=== PATIENT | female | born 1985 | race Caucasian/White ===

== ENCOUNTER 2016-12-22 20:19 | Inpatient (IN) | payer OTHER ==
[~2016-12-22] VITALS: Ht 177.8 cm; Wt 151.4 kg
--- OUTSIDE RECORDS SUMMARY | 2016-12-22 20:27 | XMS REPORT | Continuity of Care Document ---
Author Author [facility] Address Unknown Phone Unavailable Allergies Medications Problems Date Dx Coded Attending Type Code Diagnosis Diagnosed By 10/26/2015 Andi DRAPER, Frandy Uribe Ot 729.1 10/26/2015 Frandy Escamilla MD Ot 786.2 11/03/2015 WESTON DRAPER, FATIMAH Prescott Ot I49.3 11/03/2015 WESTON DRAPER, FATIMAH Prescott Ot I49.9 07/31/2016 HITESH DRAPER, KATARZYNA Prescott Ot Z36 ENCOUNTER FOR SCREENING OF MOT 08/08/2016 HITESH DRAPER, KATARZYNA Prescott Ot Z36 ENCOUNTER FOR SCREENING OF MOT Procedures Results Encounters ACCT No. Visit Date/Time Discharge Status Pt. Type Provider Facility Loc./Unit Complaint [id number] 09/27/2013 15:47:00 2013 23:59:59 CLS Outpatient Andi DRAPER, Frandy [facility] RAD [id number] 07/24/2016 14:46:00 ACT Outpatient HITESH DRAPER, [facility] RAD ANATOMIC SURVEY [id number] 10/26/2015 08:12:00 ACT Outpatient WESTON DRAPER , [facility] RT
[2016-12-22 21:00] VITALS: BP 136/68
[2016-12-22] MEDS ORDERED: MISOPROSTOL 25 MCG (CYTOTEC) TABLET PV SCH (21:15)
[2016-12-22] MEDS ORDERED: AMPICILLIN INJ 2,000 MG in SODIUM CHLORIDE 100 ML IV SCH (21:15)
[2016-12-22] MEDS ORDERED: SODIUM CHLORIDE FLUSH 3 ML SYR IV PRN (21:15)
[2016-12-22] MEDS ORDERED: CALCIUM CARBONATE CHEWABLE 300 MG (TUMS) TABLET PO PRN (21:15)
[2016-12-22 21:30] VITALS: BP 136/68
[2016-12-22] MEDS ORDERED: LIDOCAINE PF 1% (XYLOCAINE) 2 ML VIAL INJ ONE ×2 (21:34→22:50)
[2016-12-22] MEDS ORDERED: AMPICILLIN 2000 MG VIAL ONE (22:09)
[2016-12-22] MEDS ORDERED: SODIUM CHLORIDE 100 ML ONE (22:09)
[2016-12-22 22:13] VITALS: BP 136/68
[2016-12-22 22:13] LABS: MEAN CORPUSCULAR HGB CONC 33.5 g/dL (31.0-37.0); MEAN PLATELET VOLUME 10.1 FL (6.0-9.5); WHITE BLOOD COUNT 13.92 10^3uL (4.0-11.0)
[2016-12-22 22:16] LABS: MEAN CORPUSCULAR HEMOGLOBIN 26.9 PG (26.0-34.0)
[2016-12-22 23:00] VITALS: BP 112/61
[2016-12-22 23:30] VITALS: BP 114/59
[2016-12-23] VITALS (29 sets, daily range): BP systolic 108–132; BP diastolic 56–78
[2016-12-23] MEDS ORDERED: SODIUM CHLORIDE 100 ML ONE (02:00)
[2016-12-23] MEDS ORDERED: AMPICILLIN 1000 MG ONE (02:00)
[2016-12-23] MEDS: AMPICILLIN INJ 1,000 MG in SODIUM CHLORIDE 50 ML IV SCH ×6 (02:10→22:19)
--- NOTE | 2016-12-23 08:27 | History and Physical (E) ---
History & Physical (OB) Subjective: CC: Induction 31 year old at 40 3/7 WGA by LMP confirmed with 7 week U/S presents for elective induction. She was not having any contractions upon presentation, having good FM, no LOF and no VB. has been complicated by maternal obesity, genital warts, but no lesions currently, and GBS+. PNC: [facility] Hx: none PMHx: none PSHx: to [place]. Employed at [employer]. No tob/EtOH/ILD. Allergies: Coded Allergies: No Known Drug Allergies (Unverified , 12/22/16) Objective: Vital Signs Date Time Temp Pulse Resp B/P Pulse Ox O2 Delivery O2 Flow Rate FiO2 12/23/16 06:50 12/23/16 05:00 97.9 81 16 12/22/16 22:13 Room air Laboratory Results Past 24 Hrs 12/22/16 22:00: Hematocrit 38.50, Hemoglobin 12.9, Mean Corpuscular Hemoglobin 26.9, Mean Corpuscular Hemoglobin Concent 33.5, Mean Corpuscular Volume 80, Mean Platelet Volume 10.1, Platelet Count 226, Red Blood Count 4.79, Red Cell Distribution Width 14.2, White Blood Count 13.92 General: Alert and oriented, NAD Chest: CTA Abdomen: Gravid Cardiovasular: RRR, No murmur Extremities: No edema FHT's: 125, moderately reactive, +accels. Cat I. Cx: 2/75/-3 Amonate: q2.5min Screenings: Blood type: A Positive, Rubella Immune, RPR non-reactive, HBV Negative, HIV Negative , GBS Positive. Problems/Plans: (1) 40 weeks gestation of Assessment & Plan: 3 doses of cytotec placed overnight, contractions starting, but no cervical change yet. AROM performed with clear fluid returned. Will give it an hour, and if no change, will start pitocin. Epidural when desired. (2) GBS (group B Streptococcus carrier), +RV culture, currently Assessment & Plan: Ampicillin started on admission, 3 doses received so far. Additional Copies to: End of Report . KATARZYNA PROCTOR MD December 23, 2016 08:17
[2016-12-23] MEDS ORDERED: ROPIVACAINE 1% 10 MG/ML (NAROPIN) 20 ML AMPUL ONE ×3 (09:57→18:49)
[2016-12-23] MEDS ORDERED: OXYTOCIN INJ 20 UNIT in NS 1000ml 1,000 ML IV PRN (12:15)
--- NOTE | 2016-12-23 12:27 | Progress Note (E) ---
Progress Note 12:24 Epidural in, pt resting comfortably. FHT 115s, moderate reactivity, no accels, but did have accel with head stim. Cat I. Cvx 3/80/-2. [place] q 5min. Will start pitocin for augmentation. KATARZYNA PROCTOR MD December 23, 2016 12:26
[2016-12-23 13:05] LABS: BILIRUBIN,URINE Negative (Negative); CLARITY,URINE Clear; COLOR,URINE Yellow; GLUCOSE, URINE (UA) Negative (Negative); LEUKOCYTE ESTERASE ,URINE Negative (Negative); UROBILINOGEN,URINE 0.2 mg/dL (0.2-1.0)
--- NOTE | 2016-12-23 16:50 | Progress Note (E) ---
Progress Note Pit at 13mu. Ctx q2-3min. FHT 130, mod reactive, no decels or accels. Cat I. Cvx /-2. Continue current management. KATARZYNA PROCTOR MD December 23, 2016 16:50
[2016-12-23] MEDS ORDERED: ONDANSETRON 2 MG/ML (Z0FRAN) 2 ML VIAL IV PRN (19:55)
[2016-12-24] VITALS (14 sets, daily range): BP systolic 84–126; BP diastolic 56–75
[2016-12-24] MEDS ORDERED: SODIUM CHLORIDE IV SCH (02:15)
[2016-12-24] MEDS ORDERED: CEFAZOLIN IV SCH (02:15)
[2016-12-24] MEDS ORDERED: POT BICARB/SOD BICARB/CIT AC (ALKA-SELTZER GOLD) 1 TABLET.EFF PO SCH (02:15)
[2016-12-24] MEDS ORDERED: METOCLOPRAMIDE 10 MG/2 ML (REGLAN) VIAL IV SCH (02:15)
[2016-12-24] MEDS ORDERED: ceFAZolin 1000 MG (ANCEF) VIAL ONE (02:16)
--- NOTE | 2016-12-24 02:18 | History and Physical (E) ---
OB History & Physical Update Patient has pushed for over 2 hours, and made no progress past +1 station. Consent was obtained for vacuum delivery. Position was confirmed, Piña in place. Kiwi vacuum was placed and brought to 22mmHg. 3 pulls were made with 2 pop-offs and no advancement of station, and then the procedure abandoned. Advised for failure to descend. Patient advised of risks and benefits and elected to proceed. FHT dropped to 90s during vacuum procedure but recovered immediately after it was removed. FHT 120s now, minimal reactivity, Cat II. KATARZYNA PROCTOR MD December 24, 2016 02:18
[2016-12-24] MEDS ORDERED: SODIUM CHLORIDE 50 ML IV ONE (02:19)
[2016-12-24] MEDS ORDERED: OXYTOCIN INJ 20 UNIT in NS 1000ml 1,000 ML IV SCH (02:53)
[2016-12-24] MEDS ORDERED: ROPIVACAINE 1% 10 MG/ML (NAROPIN) 20 ML AMPUL ONE (02:54)
[2016-12-24] MEDS ORDERED: morphine PF 0.5 MG/ML (DURAMORPH) 10 ML VIAL IV ONE (02:54)
[2016-12-24] MEDS ORDERED: LANOLIN OINTMENT 28 GM TUBE TOP PRN (02:55)
[2016-12-24] MEDS: IBUPROFEN 600 MG (MOTRIN) TAB PO SCH ×4 (02:55→20:53)
[2016-12-24] MEDS ORDERED: OXYTOCIN 10 UNIT/ML (PITOCIN) 1 ML VIAL ONE (02:56)
[2016-12-24] MEDS ORDERED: ONDANSETRON 2 MG/ML (Z0FRAN) 2 ML VIAL ONE (02:59)
[2016-12-24] MEDS ORDERED: METHYLERGONOVINE 0.2 MG/ML (METHERGINE) AMP ONE (03:54)
[2016-12-24] MEDS ORDERED: METHYLERGONOVINE 0.2 MG/ML (METHERGINE) AMP IM ONE (04:00)
[2016-12-24] MEDS ORDERED: ONDANSETRON 2 MG/ML (Z0FRAN) 2 ML VIAL IV ONE (07:30)
[2016-12-24] MEDS ORDERED: NS FLUSH 10 ML PRN IV (07:35)
[2016-12-24] MEDS ORDERED: NALBUPHINE 10 MG/ML (NUBAIN) 1 ML AMP IV PRN ×2 (07:35)
[2016-12-24] MEDS ORDERED: NS FLUSH 3 ML PRN IV (07:35)
[2016-12-24] MEDS ORDERED: ONDANSETRON 2 MG/ML (Z0FRAN) 2 ML VIAL IV PRN (07:35)
[2016-12-24] MEDS ORDERED: diphenhydrAMINE 50 MG/ML INJ (BENADRYL) IV PRN (07:35)
[2016-12-24] MEDS ORDERED: diphenhydrAMINE 50 MG (BENADRYL) CAPSULE PO PRN (07:35)
--- NOTE | 2016-12-24 09:20 | NUR ---
Patient assisted to edge of bed to dangle. Pt tolerates well denies any nausea or dizziness.
--- NOTE | 2016-12-24 13:00 | NUR ---
Pt up to bathroom with stand by assistance. Pt able to perform pericare independently. 300ml of blood noted in hat. Once back to bed fundal check performed. Will continue to monitor.
--- NOTE | 2016-12-24 17:50 | Progress Note (E) ---
Progress Note Doing well. Up to bathroom this afternoon. Nursing going well, other than baby being a little sleepy. Pain controlled. Hgb 12.9 to 11.0. KATARZYNA PROCTOR MD December 24, 2016 17:50
[2016-12-24] MEDS: diphenhydrAMINE 25 MG (BENADRYL) TABLET PO PRN ×2 (18:51→20:57)
[2016-12-24] MEDS: DOCUSATE SODIUM 100 MG (COLACE) CAP PO SCH (20:52)
[2016-12-25 00:30] VITALS: BP 118/74
[2016-12-25] MEDS: IBUPROFEN 600 MG (MOTRIN) TAB PO SCH ×4 (03:00→21:40)
[2016-12-25] MEDS: oxyCODONE/ACETAMINOPHEN 5MG-325 MG (PERCOCET) TABLET PO PRN ×4 (03:00→20:27)
[2016-12-25 04:58] VITALS: BP 109/68
[2016-12-25 07:07] LABS: MEAN CORPUSCULAR HEMOGLOBIN 27.1 PG (26.0-34.0); MEAN PLATELET VOLUME 9.6 FL (6.0-9.5); WHITE BLOOD COUNT 16.99 10^3uL (4.0-11.0)
[2016-12-25 08:00] VITALS: BP 122/62
--- NOTE | 2016-12-25 09:30 | NUR ---
Pt up to shower independently. Dressing removed in shower. Incision assessed, two small spots where the incision is not complete approximated. Addendum: 12/25/16 at 1136 by Day Ornelas RN Gauze placed on incision under underwear.
--- NOTE | 2016-12-25 10:45 | NUR ---
Steri strips placed on incision per doctors orders.
--- NOTE | 2016-12-25 12:54 | C Section Operative Report (E) ---
C Section Operative Report 12/24/16 ,03:30 Pre-Operative Diagnosis: 1. Term intrauterine 2. Failure to descend Post-Operative Diagnosis: 1. Term intrauterine 2. Failure to descend 3. LGA 4. Cephalopelvic disproportion Operation: Primary low transverse section Surgeon: Lilliam Hobson MD Supervisor [employer] Former: Conrad Walters MD Anesthesia: Epidural Complications: None. Findings: 1. Viable male infant, BW 10 pounds 11 ounces, 4850 grams, Apgars 9//10 2. Normal uterus, tubes and ovaries EBL: 1100ml Procedure: Patient was advised of risks of procedure and elected to proceed. See H&P for indications. Labor epidural was brought up in the preoperative room, and then patient was taken to operating room. Patient was prepped and draped in the usual sterile fashion. Time out was performed. Anesthesia was tested and found to be adequate. A Pfannenstiel incision was made 2cm above the symphysis pubis and carried to the level of fascia. The fascial incision was then extended laterally with Cai scissors. The superior fascia was grasped with Daniel clamps and dissected away from the underlying musculature bluntly and with Cai scissors. The inferior fascia was then grasped with Kochers and dissected away bluntly and with Cai scissors. The abdominal cavity was then entered sharply. The bladder blade was placed. A bladder flap was created with Cai scissors. The bladder blade was replaced. A low transverse uterine incision was made with scalpel and the uterus was entered. Meconium stained fluid was seen. The vertex was grasped and baby delivered atraumatically with fundal pressure. The cord was clamped and cut, and baby was handed to waiting nursing personnel. The placenta was then delivered manually. The uterus was exteriorized and wiped free of clots and decidua. The uterine incision was grasped with ring forceps. The uterine incision was then repaired in a running, locking fashion with 0 Vicryl. It was then imbricated with a running, non- locking suture of 0 Vicryl, and again with another running, non-locking suture of 0-Vicryl, and a figure of eight suture used for hemostasis at the right corner. The uterus was returned to the abdominal cavity, and the pericolic gutters were inspected and found to be dry. A single mattress suture of 1-0 Chromic was used to reapproximate the abdominal muscles. The fascia was closed with a running, non-locking suture of 0 Vicryl. The subcutaneous layer was irrigated with normal saline. The skin was then closed with Insorb stapler. Counts were correct x2. The patient was returned to the postoperative room in stable condition. KATARZYNA HOBSON MD December 24, 2016 02:53
--- NOTE | 2016-12-25 12:57 | Progress Note (E) ---
Post- Progress Note Subjective: Doing well. Up to shower this morning, a bit sore afterwards. Urinating, passing flatus. Tolerating full diet. Objective: Vital Signs Date Time Temp Pulse Resp B/P Pulse Ox O2 Delivery O2 Flow Rate FiO2 12/25/16 08:00 97.4 90 16 122/62 97 12/24/16 16:03 Room air I & O 12/24/16 12/25/16 19:00 07:00 Intake Total 2200 ml Output Total 100 ml 2100 ml Balance -100 ml 100 ml Laboratory Tests 12/25/16 07:00: Hematocrit 27.90, Hemoglobin 9.2, Mean Corpuscular Hemoglobin 27.1, Mean Corpuscular Hemoglobin Concent 33.0, Mean Corpuscular Volume 82, Mean Platelet Volume 9.6, Platelet Count 199, Red Blood Count 3.40, Red Cell Distribution Width 14.4, White Blood Count 16.99 Blood type: A Positive, Current Medications Oxytocin/Sodium Chloride 1,002 ml @ 0 mls/hr Q0M IV Last administered on 09:50; Admin Dose 125 MLS/HR; Start 12/24/16 at 02:53 Ibuprofen 600 mg Q6H PO Last administered on 12/25/16 08:42; Admin Dose 600 MG ; Start 12/24/16 at 02:55 Oxycodone/ Acetaminophen Total acetaminophen not... Q4H PRN PO Last administered on 12/25/16 08:43; Admin Dose 1 TAB; Start 12/24/16 at 02:55 Docusate Sodium 100 mg HS PO Last administered on 12/24/16 20:52; Admin Dose 100 MG; Start 12/24/16 at 21:00 Sodium Chloride 3 ml UD PRN IV; Start 12/24/16 at 07:35 Sodium Chloride 10 ml UD PRN IV; Start 12/24/16 at 07:35 Ondansetron HCl 4 mg Q6H PRN IV; Start 12/24/16 at 07:35 General: Alert and oriented, NAD Abdomen: Soft, non-distended, fundus firm Extremities: 1+ edema Skin: Inc c/d/i Problems/Plans: (1) delivery, delivered, current hospitalization Assessment & Plan: Routine cares. Plan discharge likely Friday. KATARZYNA PROCTOR MD December 25, 2016 12:57
[2016-12-25 20:57] VITALS: BP 114/51
[2016-12-25] MEDS: DOCUSATE SODIUM 100 MG (COLACE) CAP PO SCH (21:19)
[2016-12-25] MEDS ORDERED: LACTATED RINGERS 1,000 ML IV ONE (22:44)
[2016-12-26] MEDS: oxyCODONE/ACETAMINOPHEN 5MG-325 MG (PERCOCET) TABLET PO PRN ×4 (03:15→19:22)
[2016-12-26] MEDS: IBUPROFEN 600 MG (MOTRIN) TAB PO SCH ×3 (09:56→23:56)
[2016-12-26 12:00] VITALS: BP 106/65
--- NOTE | 2016-12-26 12:37 | Progress Note (E) ---
Post- Progress Note Subjective: Doing well. Ambulating, voiding, tolerating full diet, pain controlled with oral meds. Working on latch with nursing. Objective: Vital Signs Date Time Temp Pulse Resp B/P Pulse Ox O2 Delivery O2 Flow Rate FiO2 12/25/16 20:57 97.7 96 16 114/51 12/25/16 08:00 97 12/24/16 16:03 Room air Blood type: A Positive, Current Medications Docusate Sodium 100 mg HS PO Last administered on 12/25/16t 21:19; Admin Dose 100 MG; Start 12/24/16 at 21:00 General: Alert and oriented, NAD Abdomen: Soft, non-distended, fundus firm Extremities: trace edema Skin: Inc c/d/i Problems/Plans: (1) delivery, delivered, current hospitalization Assessment & Plan: Routine cares. Plan discharge likely Friday. KATARZYNA PROCTOR MD December 26, 2016 12:37
[2016-12-26] MEDS: DOCUSATE SODIUM 100 MG (COLACE) CAP PO SCH (20:37)
[2016-12-26 21:40] VITALS: BP 111/63
[2016-12-27] MEDS: oxyCODONE/ACETAMINOPHEN 5MG-325 MG (PERCOCET) TABLET PO PRN ×2 (00:38→08:50)
[2016-12-27] MEDS: IBUPROFEN 600 MG (MOTRIN) TAB PO SCH (05:57)
[2016-12-27 08:00] VITALS: BP 111/69
[2016-12-27] MEDS ORDERED: OXYC1TAB87 PO (08:57)
[2016-12-27] MEDS ORDERED: DOCU100C8 PO (08:57)
[2016-12-27] MEDS ORDERED: IBUP-1772 PO (08:57)
--- NOTE | 2016-12-27 08:59 | Discharge Instructions (E) ---
Discharge Instructions Instructions Do not drive while taking narcotics (oxycodone). Continue taking stool softeners (docusate) while taking narcotics. Do not lift greater than 10 pounds for 2 weeks. Do not submerge incision until completely healed. KATARZYNA PROCTOR MD December 27, 2016 08:59
--- NOTE | 2016-12-27 09:17 | Discharge Summary (E) ---
Discharge Summary (E) Admit Date/Time December 22, 2016 at 20:19 Discharge Date/Time December 27, 2016 at 9:00 Admitting Provider Kati Hobson MD Primary Care Provider Kati Hobson MD Attending Provider Kati Hobson MD Consulting Provider Procedures Primary LTCS Admission Diagnosis Induction for term History and Present Illness See History and Physical for complete details. Hospital Course and Treatment Patient did well post-operatively with no complications. On day of discharge, she is ambulating, voiding, passing flatus, tolerating full diet, pain controlled. Discharge Physicial Exam General A&O, NAD Abdomen Soft, NT, FF Integumentary Inc c/d/i Laboratory/Radiology Data Laboratory Results Past 5 Days 12/22/16 22:00: Hematocrit 38.50, Hemoglobin 12.9, Mean Corpuscular Hemoglobin 26.9, Mean Corpuscular Hemoglobin Concent 33.5, Mean Corpuscular Volume 80, Mean Platelet Volume 10.1H, Platelet Count 226, Red Blood Count 4.79, Red Cell Distribution Width 14.2, White Blood Count 13.92H 12/23/16 11:30: Urine Bilirubin Negative, Urine Blood Negative, Urine Clarity Clear, Urine Collection Type Catheter, Urine Color Yellow, Urine Glucose (UA) Negative, Urine Ketones Negative, Urine Leukocyte Esterase Negative, Urine Nitrite Negative, Urine Protein Negative, Urine Specific [place] 1.020, Urine Urobilinogen 0.2, Urine pH 7.0 12/24/16 09:00: Hematocrit 32.90L, Hemoglobin 11.0L 12/25/16 07:00: Hematocrit 27.90L, Hemoglobin 9.2L, Mean Corpuscular Hemoglobin 27.1, Mean Corpuscular Hemoglobin Concent 33.0, Mean Corpuscular Volume 82, Mean Platelet Volume 9.6H, Platelet Count 199, Red Blood Count 3.40L, Red Cell Distribution Width 14.4, White Blood Count 16.99H Discharge Disposition To home Instructions Do not drive while taking narcotics (oxycodone). Continue taking stool softeners (docusate) while taking narcotics. Do not lift greater than 10 pounds for 2 weeks. Do not submerge incision until completely healed. Discharge Diet: Regular Discharge Medications New Medications: Docusate Sodium (Docusate Sodium) 100 Mg Capsule 100 MG PO HS PRN CONSTIPATION #20 CAP Ibuprofen (Ibuprofen) 600 Mg Tablet 600 MG PO Q6H PRN PAIN #30 TAB Oxycodone HCl/Acetaminophen (Endocet) 1 Tab Tablet 1-2 TAB PO Q4H PRN Breakthrough Pain #15 Ref 0 TAB Follow up Follow up Referrals: Family Practice @ [facility] @ [facility] Discharge Diagnosis Problems: Medical Problems: (1) 40 weeks gestation of (2) delivery, delivered, current hospitalization Problems: Copies to: End of Report . KATI HOBSON MD December 27, 2016 09:17
== END 2016-12-27 11:20 | disposition home or self-care (01) | DRG 765 ==
LOC: OB 20:19
PROVIDERS: ADMIT Family Medicine; ATTEND Family Medicine
PROC: 3E0P7GC Introduction of Other Therapeutic Substance into Female Reproductive, Via Natural or Artificial Opening (ICD-10-PCS; principal; 2016-12-22)
PROC: 10D00Z1 Extraction of Products of Conception, Low, Open Approach (ICD-10-PCS; 2016-12-24)
DX: O48.0 Post-term pregnancy (principal); Z68.42 Body mass index [BMI] 45.0-49.9, adult; O99.214 Obesity complicating childbirth; E66.9 Obesity, unspecified; O99.824 Streptococcus B carrier state complicating childbirth; O33.5XX0 Maternal care for disproportion due to unusually large fetus, not applicable or unspecified; O64.8XX0 Obstructed labor due to other malposition and malpresentation, not applicable or unspecified; Z3A.40 40 weeks gestation of pregnancy; Z37.0 Single live birth
CPT/HCPCS: 36415; 59510; 81003; 85014; 85018; 85027; 86850; 86900; 86901; 94762

== ENCOUNTER 2016-12-28 01:48 | Emergency (ER) | payer OTHER ==
[~2016-12-28] VITALS: Ht 165.1 cm; Wt 100.0 kg
[~2016-12-28 01:48] MED LIST: DOCU100C8 PO; IBUP-1772 PO; OXYC1TAB87 PO
--- OUTSIDE RECORDS SUMMARY | 2016-12-28 01:51 | XMS REPORT | Continuity of Care Document ---
Author Author [facility] Address Unknown Phone Unavailable Care Team Providers Care Java Sdet Name Role Phone KATARZYNA PROCTOR MD PCP [phone] Insurance Providers Payer Name Policy Number Subscriber Name Relationship [employer] [id number] Ruth Parks 20 Self / Same As Patient Chief Complaint and Reason for Visit Chief Complaint SECTION Reason for Visit 40 weeks gestation of delivery, delivered, current hospitalization GBS (group B Streptococcus carrier), +RV culture, currently Problems Active Problems Medical Problem Onset Date Status 40 weeks gestation of Unknown Acute delivery, delivered, current hospitalization Unknown Acute GBS (group B Streptococcus carrier), +RV culture, currently Unknown Acute Medications Current Home Medications Medication Dose Units Route Directions Days/Qty Instructions Start Date Ibuprofen (Motrin) 600 Mg 600 Mg ORAL Every 6 Hours as needed for Pain 30 12/27/16 Oxycodone/Acetaminophen 1 Tab 1-2 Tab ORAL Every 4HRS as needed for Breakthrough Pain 15 12/27/16 Docusate Sodium 100 Mg 100 Mg ORAL Bedtime as needed for Constipation 20 12/27/16 Social History Query Response Start Date Stop Date Smoking Status Never smoker Hospital Discharge Instructions Patient's Instructions Instructions Instructions Do not drive while taking narcotics (oxycodone). Continue taking stool softeners (docusate) while taking narcotics. Do not lift greater than 10 pounds for 2 weeks. Do not submerge incision until completely healed. Plan of Care Discharge Date 12/27/16 11:20am Disposition 01 HOME OR SELF-CARE Instructions/Education Provided Oxycodone and Acetaminophen Your Baby ( Delivery) (DC) Prescriptions See Medication Section Referrals KATARZYNA PROCTOR MD (Family Practice) - Address: [address] [place] [address] [place] [id number] KATARZYNA PROCTOR MD ([facility]) - Address: [address] [place] [address] [place] [id number] Care Plan and Goals See Discharge Instructions Section Functional Status Query Response Date Recorded Activity Up ad tarik December 27, 2016 11:00am Assistance Required Independent December 27, 2016 11:00am Allergies, Adverse Reactions, Alerts No known allergies. Immunizations No immunization records. Vital Signs Acute Vital Signs Vital Response Date/Time Temperature (Fahrenheit) 97.7 12/27/2016 8:00am Pulse 78 bpm 12/27/2016 8:00am Respirations 20 12/27/2016 8:00am Height 5 ft 10 in Weight 333 lb Body Mass Index 47.0 kg/m^2 Results Laboratory Results Test Name Result Units Flags Reference Collection Date/Time Result Date/ Time Comments White Blood Count 16.99 10^3uL H 4.0-11.0 12/25/2016 7:00am 12/25/2016 7 :08am Red Blood Count 3.40 10^6uL L 4.00-5.00 12/25/2016 7:00am 12/25/2016 7: 08am Hemoglobin 9.2 g/dL L 12.0-15.5 12/25/2016 7:00am 12/25/2016 7:08am Hematocrit 27.90 % L 35.00-45.00 12/25/2016 7:00am 12/25/2016 7:08am Mean Corpuscular Volume 82 FL 80-100 12/25/2016 7:00am 12/25/2016 7: 08am Mean Corpuscular Hemoglobin 27.1 PG 26.0-34.0 12/25/2016 7:00am 2016 7:08am Mean Corpuscular Hemoglobin Concent 33.0 g/dL 31.0-37.0 12/25/2016 7: 00am 12/25/2016 7:08am Red Cell Distribution Width 14.4 % 11.8-15.6 12/25/2016 7:00am 2016 7:08am Platelet Count 199 10^3uL 150-450 12/25/2016 7:00am 12/25/2016 7:08am Mean Platelet Volume 9.6 FL H 6.0-9.5 12/25/2016 7:00am 12/25/2016 7: 08am Urine Collection Type CATHETER 12/23/2016 11:30am 12/23/2016 1: 08pm Urine Color Yellow 12/23/2016 11:30am 12/23/2016 1:08pm Urine Clarity Clear 12/23/2016 11:30am 12/23/2016 1:08pm Urine pH 7.0 5.0 - 8.0 12/23/2016 11:30am 12/23/2016 1:08pm Urine Specific [place] 1.020 1.005-1.030 12/23/2016 11:30am 2016 1:08pm Urine Protein Negative Negative 12/23/2016 11:30am 12/23/2016 1:08pm Urine Glucose (UA) Negative Negative 12/23/2016 11:30am 12/23/2016 1: 08pm Urine Blood Negative Negative 12/23/2016 11:30am 12/23/2016 1:08pm Urine Ketones Negative Negative 12/23/2016 11:30am 12/23/2016 1:08pm Urine Nitrite Negative Negative 12/23/2016 11:30am 12/23/2016 1:08pm Urine Bilirubin Negative Negative 12/23/2016 11:30am 12/23/2016 1: 08pm Urine Urobilinogen 0.2 mg/dL 0.2-1.0 12/23/2016 11:30am 12/23/2016 1: 08pm Urine Leukocyte Esterase Negative Negative 12/23/2016 11:30am 2016 1:08pm Procedures No known history of procedures. Encounters Encounter Location Arrival/Admit Date Discharge/Depart Date Attending Provider Discharged Inpatient [facility] 12/22/16 8:19pm 12/27/16 11:20am KATARZYNA PROCTOR MD Recent Diagnosis 40 weeks gestation of delivery, delivered, current hospitalization GBS (group B Streptococcus carrier), +RV culture, currently
[2016-12-28 03:29] VITALS: BP 102/52
== END 2016-12-28 02:45 | disposition home or self-care (01) ==
LOC: ED 01:50
DX: Z03.89 Encounter for observation for other suspected diseases and conditions ruled out (principal)
CPT/HCPCS: 99281; 99283